=== PATIENT | female | born 1985 | race Caucasian/White ===

== ENCOUNTER 2023-11-21 12:20 | Emergency (ER) | payer MEDICAID ==
[~2023-11-21] VITALS: Ht 154.9 cm; Wt 97.1 kg
[2023-11-21 12:31] VITALS: TEMP 98.5
[2023-11-21] MEDS ORDERED: IBUP-1984 PO (14:47)
[2023-11-21] MEDS: acetaminophen 325mg tablet PO STA (14:57)
[2023-11-21 15:00] VITALS: BP 168/123; PULSE 126; RESP 16; O2SAT 96
[2023-11-21] MEDS: ketorolac trometh. 30mg/ml inj. IM STA (15:00)
== END 2023-11-21 15:08 | disposition left against medical advice (07) ==
LOC: ER 12:21
DX: M54.2 Cervicalgia (principal); G43.909 Migraine, unspecified, not intractable, without status migrainosus; I10 Essential (primary) hypertension; Z79.1 Long term (current) use of non-steroidal anti-inflammatories (NSAID); Z98.890 Other specified postprocedural states
CPT/HCPCS: 99282